=== PATIENT | female | born 1960 | race Caucasian/White ===

== ENCOUNTER 2018-06-11 23:44 | Emergency (ER) | payer MEDICARE, MEDICAID ==
[~2018-06-11] VITALS: Ht 160 cm; Wt 93.0 kg
[~2018-06-11 23:44] MED LIST: CITA-124 PO; CLON2TAB PO; ESTR0.6261 PO; LAMO25TA PO; NICO-687 TD; PRAZ1CAP5 PO
[2018-06-12] MEDS ORDERED: LIDOcaine 1.5% w/epinephrine 1:200,000 5ml ampul IJ ONE
[2018-06-12] MEDS ORDERED: TETanus/Pertussis (Acell)/Diphther VAC/PF (Tdap-Adult) 0.5ml syringe IM ONE
[2018-06-12] MEDS ORDERED: bacitracin 15gm ointment TP ONE (00:05)
[2018-06-12] MEDS ORDERED: LIDOcaine 1% w/EPI 1:100,000 30ml vial (MDV) IJ ONE (00:20)
[2018-06-12] MEDS ORDERED: LIDOcaine 1% (10mg/ml)w/preservative injection 20ml MDV IJ ONE (00:20)
[2018-06-12 00:25] LABS: BASOPHILS % (AUTO) 0.5 % (0-1); EOSINOPHILS # (AUTO) 0.2 X10'3 (0-0.9); EOSINOPHILS % (AUTO) 1.8 % (0-6); HEMOGLOBIN 16.5 g/dl (12.0-16.0); LYMPHOCYTES # (AUTO) 3.4 X10'3 (1.1-4.8); LYMPHOCYTES % (AUTO) 31.4 % (21-51); MEAN CORPUSCULAR HEMOGLOBIN 31.9 PG (27.0-31.0); MEAN CORPUSCULAR HGB CONC 33.8 % (33.0-36.5); MEAN CORPUSCULAR VOLUME 94.4 FL (78-98); MONOCYTES # (AUTO) 0.5 X10'3 (0-0.9); MONOCYTES % (AUTO) 4.4 % (2-12); NEUTROPHILS # (AUTO) 6.8 X10'3 (1.8-7.7); NEUTROPHILS % (AUTO) 61.9 % (42-75); PLATELET COUNT 312 X10'3 (140-440); RED BLOOD COUNT 5.19 X10'6 (4.20-5.60); RED CELL DISTRIBUTION WIDTH 14.8 % (11.5-14.5); WHITE BLOOD COUNT 10.9 X10'3 (4.5-11.0)
[2018-06-12 00:26] LABS: CLARITY,URINE SLIGHTLY CLOUDY (Clear); COLOR,URINE YELLOW (Yellow); GLUCOSE, URINE NEGATIVE (Neg); KETONES,URINE NEGATIVE (Neg); LEUKOCYTE ESTERASE ,URINE NEGATIVE (Neg); NITRITES, URINE NEGATIVE (Neg); OCCULT BLOOD,URINE NEGATIVE (Neg); PROTEIN,URINE NEGATIVE (Neg); UROBILINOGEN,URINE 0.2 E.U/dL (0.2-1.0)
[2018-06-12 00:29] LABS: UA COLLECTION TYPE CLN CATCH MIDSTREAM
[2018-06-12 00:30] LABS: URINE HCG NEGATIVE (NEG)
[2018-06-12 00:33] LABS: BACTERIA,URINE 2+ /HPF (Neg); RBC,URINE NONE SEEN /HPF (0-2); WBC,URINE 0-4 /HPF (0-4)
[2018-06-12 00:34] LABS: SQUAMOUS EPITHELIAL CELL,UR MANY /LPF (FEW)
[2018-06-12 00:37] LABS: URINE AMPHETAMINE SCREEN NEGATIVE (Neg); URINE BARBITUATE SCREEN NEGATIVE (Neg); URINE BENZODIAZEPINES SCREEN POSITIVE (Neg); URINE CANNABINOID SCREEN POSITIVE (Neg); URINE COCAINE SCREEN NEGATIVE (Neg); URINE METHADONE SCREEN NEGATIVE (Neg); URINE OPIATE SCREEN NEGATIVE (Neg); URINE PHENCYCLIDINE SCREEN NEGATIVE (Neg)
[2018-06-12 00:38] LABS: ALANINE AMINOTRANSFERASE 26 U/L (12-78); ALBUMIN 3.8 G/DL (3.4-5.0); ALKALINE PHOSPHATASE 61 IU/L (46-116); ANION GAP 9 (8-16); ASPARTATE AMINO TRANSFERASE 20 U/L (10-37); BILIRUBIN,TOTAL 0.4 MG/DL (0.1-1.0); BLOOD UREA NITROGEN 14 MG/DL (7-18); BUN/CREATININE RATIO 13.7 (6.6-38.0); CALCIUM 9.3 MG/DL (8.5-10.1); CHLORIDE 100 MMOL/L (99-107); CREATININE 1.02 MG/DL (0.40-0.90); GLUCOSE 108 MG/DL (70-104); SODIUM 139 MMOL/L (135-145); TOTAL CARBON DIOXIDE 30.4 MMOL/L (24-32); TOTAL PROTEIN 7.8 G/DL (6.4-8.2); eGFR 55 ML/MIN
[2018-06-12 00:40] LABS: POTASSIUM 4.2 MMOL/L (3.5-5.1)
[2018-06-12 00:47] LABS: ETHANOL < 0.010 GM/DL (0.0-0.010)
[2018-06-12] MEDS ORDERED: ESCI10TA PO (00:55)
[2018-06-12] MEDS ORDERED: CLON2TAB PO (00:55)
[2018-06-12] MEDS ORDERED: LAMO200T31 PO (00:55)
[2018-06-12] MEDS ORDERED: PRAZ2CAP2 PO (00:55)
[2018-06-12] MEDS ORDERED: CITA-311 PO (00:55)
[2018-06-12] MEDS ORDERED: ASEN10TA SL (00:55)
[2018-06-12] MEDS ORDERED: nicotine 21mg patch - 24 hr TD ONE (01:20)
[2018-06-12] MEDS ORDERED: LORazepam 1 MG tablet PO PRN ×2 (01:20→01:50)
[2018-06-12] MEDS ORDERED: gabapentin 400mg capsule PO SCH (08:00)
[2018-06-12] MEDS ORDERED: FLUoxetine 20mg capsule PO SCH (08:00)
[2018-06-12] MEDS ORDERED: lamoTRIgine 100mg tablet PO SCH ×2 (08:00→22:00)
[2018-06-12] MEDS ORDERED: clonazePAM 1mg tablet PO SCH ×2 (08:00→22:00)
[2018-06-12] MEDS: clonazePAM 1mg tablet PO SCH ×2 (08:25→13:44)
[2018-06-12] MEDS ORDERED: CITALOpram 10mg tablet PO SCH (09:00)
[2018-06-12] MEDS ORDERED: estrogen, conjugated 0.625mg tablet PO SCH (09:00)
[2018-06-12] MEDS ORDERED: clonazePAM 1mg tablet PO PRN (13:00)
[2018-06-12 18:06] VITALS: BP 143/84
[2018-06-12] MEDS ORDERED: ASENAPINE MALEATE 10 MG SL SCH (21:00)
[2018-06-12] MEDS ORDERED: prazosin 1mg capsule PO SCH (21:00)
[2018-06-13] MEDS ORDERED: LAMOTRIGINE PO SCH (08:00)
== END 2018-06-13 02:42 ==
LOC: ER 23:45
DX: S51.812A Laceration without foreign body of left forearm, initial encounter (principal); S51.811A Laceration without foreign body of right forearm, initial encounter; R45.851 Suicidal ideations; F31.9 Bipolar disorder, unspecified; F43.10 Post-traumatic stress disorder, unspecified; F12.90 Cannabis use, unspecified, uncomplicated; F13.90 Sedative, hypnotic, or anxiolytic use, unspecified, uncomplicated; F17.210 Nicotine dependence, cigarettes, uncomplicated; J45.909 Unspecified asthma, uncomplicated; G89.29 Other chronic pain; Z98.890 Other specified postprocedural states; Z88.5 Allergy status to narcotic agent; Z88.8 Allergy status to other drugs, medicaments and biological substances; Z79.899 Other long term (current) drug therapy; X77.8XXA Intentional self-harm by other hot objects, initial encounter; Y93.89 Activity, other specified; Y92.89 Other specified places as the place of occurrence of the external cause; Y99.9 Unspecified external cause status
CPT/HCPCS: 36415; 80053; 80305; 80320; 81001; 81025; 84443; 85025; 99285; J3490

== ENCOUNTER 2018-06-13 00:15 | Inpatient (IN) | payer MEDICARE, MEDICAID ==
[~2018-06-13] VITALS: Ht 162.6 cm; Wt 92.0 kg
[~2018-06-13 00:15] MED LIST changes: +ASEN10TA SL; -CITA-124 PO; +CITA-311 PO; +ESCI10TA PO; +LAMO200T31 PO; -LAMO25TA PO; -NICO-687 TD; -PRAZ1CAP5 PO; +PRAZ2CAP2 PO
[2018-06-13 03:18] VITALS: BP 135/87
[2018-06-13] MEDS ORDERED: acetaminophen 325mg tablet PO PRN ×2 (03:55)
[2018-06-13] MEDS ORDERED: mag hydrox/Alum hydrox/simeth 30ml oral suspension PO PRN (03:55)
[2018-06-13] MEDS ORDERED: magnesium hydroxide 30ml (MOM) UD suspension PO PRN (03:55)
[2018-06-13 08:00] VITALS: BP 126/76
[2018-06-13] MEDS ORDERED: CITALOpram 10mg tablet PO SCH (08:00)
[2018-06-13] MEDS: estrogen, conjugated 0.625mg tablet PO SCH (08:18)
[2018-06-13] MEDS: lamoTRIgine 100mg tablet PO SCH (08:19)
[2018-06-13 13:51] LABS: HEMOGLOBIN A1C 5.6 % (4.5-6.2)
[2018-06-13 14:02] LABS: CHOL/HDL RATIO 5.6 (0.00-4.99); CHOLESTEROL 263 MG/DL (0-200); HDL CHOLESTEROL 47 MG/DL (35-60); LDL CHOLESTEROL 185 MG/DL (50-100); TRIGLYCERIDES 198 MG/DL (20-135)
[2018-06-13] MEDS ORDERED: lurasidone 20mg tablet PO SCH (18:00)
[2018-06-13 20:00] VITALS: BP 126/70
[2018-06-13] MEDS: clonazePAM 1mg tablet PO PRN (20:39)
[2018-06-13] MEDS: prazosin 5mg capsule PO SCH (20:39)
[2018-06-13] MEDS ORDERED: ASENAPINE MALEATE 10 MG SL SCH (21:00)
[2018-06-13] MEDS ORDERED: prazosin 1mg capsule PO SCH (21:00)
[2018-06-14] MEDS: diphenhydrAMINE 25mg capsule PO PRN ×2 (01:02→20:27)
[2018-06-14 08:00] VITALS: BP 103/57
[2018-06-14] MEDS: estrogen, conjugated 0.625mg tablet PO SCH (08:26)
[2018-06-14] MEDS: lamoTRIgine 100mg tablet PO SCH (08:26)
[2018-06-14] MEDS: lurasidone 20mg tablet PO SCH (18:02)
[2018-06-14 20:00] VITALS: BP 133/76
[2018-06-14] MEDS: prazosin 5mg capsule PO SCH (20:27)
[2018-06-14] MEDS: clonazePAM 1mg tablet PO PRN (20:30)
[2018-06-15] MEDS: diphenhydrAMINE 25mg capsule PO PRN ×2 (05:24→18:45)
[2018-06-15 08:00] VITALS: BP 123/78
[2018-06-15] MEDS: lamoTRIgine 100mg tablet PO SCH (08:00)
[2018-06-15] MEDS: estrogen, conjugated 0.625mg tablet PO SCH (08:00)
[2018-06-15] MEDS ORDERED: voritoxetine HBr tablet 5 MG TABLET PO ONE (08:45)
[2018-06-15] MEDS: clonazePAM 1mg tablet PO PRN ×2 (13:45→20:27)
[2018-06-15] MEDS: lurasidone 20mg tablet PO SCH (17:42)
[2018-06-15 20:00] VITALS: BP 128/95
[2018-06-15] MEDS: prazosin 5mg capsule PO SCH (20:27)
[2018-06-15] MEDS ORDERED: diphenhydrAMINE 25mg capsule PO ONE (23:55)
[2018-06-16 07:00] VITALS: BP 119/74
[2018-06-16] MEDS ORDERED: voritoxetine HBr tablet 5 MG TABLET PO SCH (08:00)
[2018-06-16] MEDS: estrogen, conjugated 0.625mg tablet PO SCH (08:18)
[2018-06-16] MEDS: lamoTRIgine 100mg tablet PO SCH (08:18)
[2018-06-16] MEDS: clonazePAM 1mg tablet PO PRN (10:05)
[2018-06-16] MEDS: lurasidone 20mg tablet PO SCH (17:51)
[2018-06-16 20:42] VITALS: BP 126/59
[2018-06-16] MEDS: prazosin 5mg capsule PO SCH (21:03)
[2018-06-17] MEDS: diphenhydrAMINE 25mg capsule PO PRN ×3 (05:57→21:15)
[2018-06-17 07:00] VITALS: BP 138/75
[2018-06-17] MEDS: estrogen, conjugated 0.625mg tablet PO SCH (08:49)
[2018-06-17] MEDS: lamoTRIgine 100mg tablet PO SCH (08:49)
[2018-06-17] MEDS: voritoxetine HBr tablet 5 MG TABLET PO SCH (08:49)
[2018-06-17] MEDS: clonazePAM 1mg tablet PO PRN (13:22)
[2018-06-17] MEDS: lurasidone 20mg tablet PO SCH (17:54)
[2018-06-17 20:00] VITALS: BP 134/80
[2018-06-17] MEDS ORDERED: zolpidem 5mg tablet PO PRN (20:35)
[2018-06-17] MEDS: prazosin 5mg capsule PO SCH (21:13)
[2018-06-18 07:00] VITALS: BP 121/74
[2018-06-18] MEDS: voritoxetine HBr tablet 5 MG TABLET PO SCH (07:38)
[2018-06-18] MEDS: lamoTRIgine 100mg tablet PO SCH (07:38)
[2018-06-18] MEDS: estrogen, conjugated 0.625mg tablet PO SCH (07:38)
[2018-06-18] MEDS: lurasidone 20mg tablet PO SCH (17:54)
[2018-06-18 20:24] VITALS: BP 116/69
[2018-06-18] MEDS: prazosin 5mg capsule PO SCH (20:42)
[2018-06-18] MEDS: clonazePAM 1mg tablet PO PRN (20:42)
[2018-06-19 08:00] VITALS: BP 129/81
[2018-06-19] MEDS: voritoxetine HBr tablet 5 MG TABLET PO SCH (08:13)
[2018-06-19] MEDS: estrogen, conjugated 0.625mg tablet PO SCH (08:13)
[2018-06-19] MEDS: lamoTRIgine 100mg tablet PO SCH (08:13)
[2018-06-19] MEDS: lurasidone 20mg tablet PO SCH (18:51)
[2018-06-19 20:00] VITALS: BP 129/71
[2018-06-19] MEDS: clonazePAM 1mg tablet PO PRN (20:54)
[2018-06-19] MEDS: prazosin 5mg capsule PO SCH (20:54)
[2018-06-20] MEDS: diphenhydrAMINE 25mg capsule PO PRN (00:24)
[2018-06-20 07:00] VITALS: BP 131/70
[2018-06-20] MEDS: voritoxetine HBr tablet 5 MG TABLET PO SCH (08:00)
[2018-06-20] MEDS: lamoTRIgine 100mg tablet PO SCH (08:00)
[2018-06-20] MEDS: estrogen, conjugated 0.625mg tablet PO SCH (08:02)
[2018-06-20] MEDS ORDERED: VORT10TA PO (13:55)
[2018-06-20] MEDS ORDERED: LURA60TA2 PO (13:55)
[2018-06-20] MEDS ORDERED: LAMO100T89 PO (13:55)
[2018-06-20] MEDS ORDERED: PRAZ5CAP2 PO (13:55)
[2018-06-20] MEDS ORDERED: CLON1TAB12 PO (13:55)
[2018-06-20] MEDS ORDERED: DIPH-423 PO (13:55)
== END 2018-06-20 14:30 | disposition home or self-care (01) | DRG 885 ==
LOC: ADULT MH 00:15
PROVIDERS: ADMIT Psychiatry & Neurology Psychiatry; ATTEND Psychiatry & Neurology Psychiatry
DX: F33.2 Major depressive disorder, recurrent severe without psychotic features (principal); R45.851 Suicidal ideations; F17.210 Nicotine dependence, cigarettes, uncomplicated; E66.9 Obesity, unspecified; M54.9 Dorsalgia, unspecified; G89.29 Other chronic pain; F43.10 Post-traumatic stress disorder, unspecified; F60.9 Personality disorder, unspecified; Z90.710 Acquired absence of both cervix and uterus; Z88.8 Allergy status to other drugs, medicaments and biological substances; Z83.518 Family history of other specified eye disorder; Z80.0 Family history of malignant neoplasm of digestive organs; Z82.49 Family history of ischemic heart disease and other diseases of the circulatory system; Z68.34 Body mass index [BMI] 34.0-34.9, adult
CPT/HCPCS: 36415; 80061; 83036; 87070; 99285; 99406; Q0163

== ENCOUNTER 2020-02-23 00:57 | Emergency (ER) | payer MEDICARE, MEDICAID ==
[~2020-02-23] VITALS: Ht 172.7 cm; Wt 97.7 kg
[~2020-02-23 00:57] MED LIST changes: -ASEN10TA SL; -CITA-311 PO; +CLON1TAB12 PO; -CLON2TAB PO; +DIPH-423 PO; -ESCI10TA PO; +LAMO100T PO; -LAMO200T31 PO; +LURA60TA2 PO; -PRAZ2CAP2 PO; +PRAZ5CAP2 PO; +VORT10TA PO
[2020-02-23 01:00] VITALS: BP 113/78
[2020-02-23 01:40] LABS: EOSINOPHILS % (AUTO) 0 % (0-6); LYMPHOCYTES # (AUTO) 1.5 X10'3 (1.1-4.8); LYMPHOCYTES % (AUTO) 15.9 % (21-51); MEAN CORPUSCULAR HGB CONC 35.1 g/dL (33.0-36.5); MONOCYTES # (AUTO) 0.1 X10'3 (0-0.9); WHITE BLOOD COUNT 9.4 X10'3 (4.5-11.0)
[2020-02-23 01:42] LABS: BASOPHILS % (AUTO) 0.2 % (0-1); HEMATOCRIT 50.2 % (35.0-45.0); HEMOGLOBIN 17.6 g/dl (12.0-16.0); MONOCYTES % (AUTO) 0.9 % (2-12); NEUTROPHILS # (AUTO) 7.8 X10'3 (1.8-7.7); PLATELET COUNT 227 X10'3 (140-440); RED BLOOD COUNT 5.03 X10'6 (4.20-5.60); RED CELL DISTRIBUTION WIDTH 14.8 % (11.5-14.5)
[2020-02-23 01:45] LABS: ALANINE AMINOTRANSFERASE 30 U/L (12-78); ALBUMIN 3.7 G/DL (3.4-5.0); ALKALINE PHOSPHATASE 47 IU/L (46-116); ANION GAP 13 (8-16); ASPARTATE AMINO TRANSFERASE 15 U/L (10-37); BILIRUBIN,TOTAL 0.4 MG/DL (0.1-1.0); BLOOD UREA NITROGEN 20 MG/DL (7-18); BUN/CREATININE RATIO 23.8 (6.6-38.0); CALCIUM 8.8 MG/DL (8.5-10.1); CHLORIDE 100 MMOL/L (99-107); CREATININE 0.84 MG/DL (0.40-0.90); GLUCOSE 120 MG/DL (70-104); SODIUM 135 MMOL/L (135-145); TOTAL CARBON DIOXIDE 22.4 MMOL/L (24-32); TOTAL PROTEIN 7.5 G/DL (6.4-8.2); eGFR 69 ML/MIN
[2020-02-23 01:49] LABS: URINE HCG NEGATIVE (NEG)
[2020-02-23 01:51] LABS: ACETAMINOPHEN < 2.0 UG/ML (10-30)
[2020-02-23] MEDS ORDERED: TETanus/Pertussis (Acell)/Diphther VAC/PF (Tdap-Adult) 0.5ml syringe IMVAC ONE (01:55)
[2020-02-23 01:58] LABS: URINE AMPHETAMINE SCREEN NEGATIVE (Neg); URINE BARBITUATE SCREEN NEGATIVE (Neg); URINE BENZODIAZEPINES SCREEN POSITIVE (Neg); URINE CANNABINOID SCREEN POSITIVE (Neg); URINE COCAINE SCREEN NEGATIVE (Neg); URINE METHADONE SCREEN NEGATIVE (Neg); URINE OPIATE SCREEN NEGATIVE (Neg); URINE PHENCYCLIDINE SCREEN NEGATIVE (Neg)
--- NOTE | 2020-02-23 02:00 | NUR ---
PATIENT SLEEPING, NO SIGN OF DISTRESS
[2020-02-23] MEDS ORDERED: OMEP40CA13 PO (03:32)
[2020-02-23] MEDS ORDERED: ESCI20TA PO (03:32)
[2020-02-23] MEDS ORDERED: ASEN10TA SL (03:32)
[2020-02-23] MEDS ORDERED: THO10T PO (03:32)
--- NOTE | 2020-02-23 04:32 | NUR ---
PATIENT OUT OF ROOM ASKING TO CALL HER MOTHER IN ORDER TO MAKE SURE THAT SHE CAN TAKE CARE OF HER PETS. DISCUSSED WITH PATIENT THAT IT WOULD BE BETTER TO WEIGHT UNTIL A LATER HOUR TO CALL SINCE HER MOTHER IS STILL ASLEEP RIGHT NOW. PATIENT IS AGREEABLE TO THIS PLAN. RETURNED TO ROOM AND BED.
[2020-02-23] MEDS ORDERED: diphenhydrAMINE 25mg capsule PO ONE (04:45)
--- NOTE | 2020-02-23 05:07 | NUR ---
PACKET FAXED TO [facility]
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
--- NOTE | 2020-02-23 06:19 | NUR ---
bipolar/depression, chronic back pain. Epidural yesterday.
--- NOTE | 2020-02-23 06:40 | NUR ---
Patient's sleeping of left side. No distress observed. Continue to monitor.
[2020-02-23] MEDS ORDERED: acetaminophen 325mg tablet PO ONE (07:00)
--- NOTE | 2020-02-23 08:26 | NUR ---
Patient sitting up and talking to her mom on the phone. No distress observed. Continue to monitor.
== END 2020-02-23 10:05 | disposition home or self-care (01) ==
LOC: ER 00:58
DX: S50.812A Abrasion of left forearm, initial encounter (principal); S50.811A Abrasion of right forearm, initial encounter; R45.851 Suicidal ideations; G89.29 Other chronic pain; F31.9 Bipolar disorder, unspecified; F12.90 Cannabis use, unspecified, uncomplicated; Z72.89 Other problems related to lifestyle; Z98.890 Other specified postprocedural states; Z60.2 Problems related to living alone; Z88.8 Allergy status to other drugs, medicaments and biological substances; Z79.899 Other long term (current) drug therapy; W45.8XXA Other foreign body or object entering through skin, initial encounter; Y93.89 Activity, other specified; Y92.89 Other specified places as the place of occurrence of the external cause; Y99.8 Other external cause status
CPT/HCPCS: 36415; 80053; 80305; 80320; 80329; 81025; 85025; 90471; 90715; 99285; Q0163

== ENCOUNTER 2021-02-15 19:28 | Emergency (ER) | payer MEDICARE, MEDICAID ==
[~2021-02-15] VITALS: Ht 162.6 cm; Wt 84.0 kg
[~2021-02-15 19:28] MED LIST changes: +ASEN10TA SL; -DIPH-423 PO; +ESCI20TA PO; -ESTR0.6261 PO; -LURA60TA2 PO; +OMEP40CA21 PO; -PRAZ5CAP2 PO; +THO10T PO; -VORT10TA PO
[2021-02-15] MEDS ORDERED: TETanus/Pertussis (Acell)/Diphther VAC/PF (Tdap-Adult) 0.5ml syringe IMVAC ONE (20:00)
[2021-02-15] MEDS ORDERED: normal saline 1000ml 1,000 ML IV ONE (20:00)
[2021-02-15] MEDS ORDERED: bacitracin 15gm ointment TP ONE (20:00)
[2021-02-15 20:29] LABS: BASOPHILS # (AUTO) 0.1 X10'3 (0-0.2); BASOPHILS % (AUTO) 0.8 % (0-1); EOSINOPHILS # (AUTO) 0.1 X10'3 (0-0.9); EOSINOPHILS % (AUTO) 1.8 % (0-6); HEMATOCRIT 47.3 % (35.0-45.0); HEMOGLOBIN 16.1 g/dl (12.0-16.0); LYMPHOCYTES # (AUTO) 2.4 X10'3 (1.1-4.8); MEAN CORPUSCULAR HEMOGLOBIN 32.8 PG (27.0-31.0); MEAN CORPUSCULAR VOLUME 96.4 FL (78-98); MEAN PLATELET VOLUME 6.8 FL (7.4-10.4); MONOCYTES # (AUTO) 0.5 X10'3 (0-0.9); MONOCYTES % (AUTO) 6.6 % (2-12); NEUTROPHILS # (AUTO) 3.9 X10'3 (1.8-7.7); NEUTROPHILS % (AUTO) 55.8 % (42-75); PLATELET COUNT 327 X10'3 (140-440); RED CELL DISTRIBUTION WIDTH 16.8 % (11.5-14.5)
[2021-02-15 20:39] LABS: ALANINE AMINOTRANSFERASE 17 U/L (12-78); ALBUMIN 3.3 G/DL (3.4-5.0); ALBUMIN/GLOBULIN RATIO 0.9 (1.1-1.5); ALKALINE PHOSPHATASE 65 IU/L (46-116); ANION GAP 6 (8-16); ASPARTATE AMINO TRANSFERASE 15 U/L (10-37); BILIRUBIN,TOTAL 0.3 MG/DL (0.1-1.0); BLOOD UREA NITROGEN 12 MG/DL (7-18); BUN/CREATININE RATIO 15.6 (6.6-38.0); CALCIUM 8.3 MG/DL (8.5-10.1); CHLORIDE 102 MMOL/L (99-107); CREATININE 0.77 MG/DL (0.40-0.90); GLUCOSE 85 MG/DL (70-104); POTASSIUM 3.7 MMOL/L (3.5-5.1); SODIUM 138 MMOL/L (135-145); TOTAL CARBON DIOXIDE 29.8 MMOL/L (24-32); TOTAL PROTEIN 6.9 G/DL (6.4-8.2); eGFR 76 ML/MIN
[2021-02-15 20:49] LABS: ETHANOL < 0.010 GM/DL (0.0-0.010)
[2021-02-15 20:55] LABS: ACETAMINOPHEN < 2.0 UG/ML (10-30)
--- NOTE | 2021-02-15 23:31 | NUR ---
Call from poison control to follow up on patient condition. EKG ordered by recommedation of poison control and vital signs monitored.
[2021-02-16] MEDS ORDERED: CHLO100T24 PO (00:31)
[2021-02-16] MEDS ORDERED: LAMO200T10 PO (00:31)
[2021-02-16 01:00] LABS: URINE HCG NEGATIVE (NEG)
[2021-02-16 01:01] LABS: CLARITY,URINE CLEAR (Clear); COLOR,URINE YELLOW (Yellow); GLUCOSE, URINE NEGATIVE (Neg); KETONES,URINE NEGATIVE (Neg); LEUKOCYTE ESTERASE ,URINE NEGATIVE (Neg); NITRITES, URINE NEGATIVE (Neg); OCCULT BLOOD,URINE NEGATIVE (Neg); PH,URINE 5.5 (4.8-8.0); PROTEIN,URINE NEGATIVE (Neg); UROBILINOGEN,URINE 0.2 E.U/dL (0.2-1.0)
[2021-02-16 01:02] LABS: UA COLLECTION TYPE CLN CATCH MIDSTREAM
[2021-02-16 01:05] LABS: URINE AMPHETAMINE SCREEN NEGATIVE (Neg); URINE BARBITUATE SCREEN NEGATIVE (Neg); URINE BENZODIAZEPINES SCREEN POSITIVE (Neg); URINE CANNABINOID SCREEN POSITIVE (Neg); URINE COCAINE SCREEN NEGATIVE (Neg); URINE METHADONE SCREEN NEGATIVE (Neg); URINE OPIATE SCREEN NEGATIVE (Neg); URINE PHENCYCLIDINE SCREEN NEGATIVE (Neg)
[2021-02-16] MEDS ORDERED: acetaminophen 325mg tablet PO ONE (01:55)
[2021-02-16 05:56] VITALS: BP 144/80
[2021-02-16] MEDS ORDERED: pantoprazole 40mg Tablet.DR PO SCH (07:30)
--- NOTE | 2021-02-16 07:45 | NUR ---
PT HAS BEEN SLEEPING THIS AM. PT WAKES SHORTLY TO USE BATHROOM AND THEN GOS RIGHT BACK TO BED AND SLEEP.
[2021-02-16] MEDS ORDERED: chlorproMAZINE 25mg tablet PO SCH (08:00)
--- NOTE | 2021-02-16 09:00 | NUR ---
PT CURRENTLY TALKING WITH [facility] LOAN INTERVIEWER NAHUN AT BEDSIDE.
--- NOTE | 2021-02-16 09:28 | NUR ---
PT PLACED ON HOLD PER [facility] PRECISION STRUCTURAL METAL FITTER NAHUN
--- NOTE | 2021-02-16 10:45 | NUR ---
PT RESTING IN BED WITH EYES CLOSED, EFFORTLESS RESPIRATIONS OBSERVED.
--- NOTE | 2021-02-16 12:57 | NUR ---
PT SITTING AT BEDSIDE EATING LUNCH
[2021-02-16] MEDS ORDERED: asenapine 5mg TAB.SUBL SL SCH (21:00)
== END 2021-02-16 14:09 ==
LOC: ER 19:28
DX: S61.512A Laceration without foreign body of left wrist, initial encounter (principal); S61.511A Laceration without foreign body of right wrist, initial encounter; Z20.822 Contact with and (suspected) exposure to COVID-19; R45.851 Suicidal ideations; J45.909 Unspecified asthma, uncomplicated; G89.29 Other chronic pain; F31.9 Bipolar disorder, unspecified; F12.90 Cannabis use, unspecified, uncomplicated; Z60.2 Problems related to living alone; Z72.89 Other problems related to lifestyle; Z88.8 Allergy status to other drugs, medicaments and biological substances; Z79.899 Other long term (current) drug therapy; X58.XXXA Exposure to other specified factors, initial encounter; Y93.89 Activity, other specified; Y92.89 Other specified places as the place of occurrence of the external cause; Y99.8 Other external cause status
CPT/HCPCS: 36415; 80053; 80305; 80320; 80329; 81003; 81025; 84443; 85025; 87635; 90471; 90715; 93005; 96360; 96361; 99285; C9803; J7030; Q0161

== ENCOUNTER 2022-08-20 17:49 | Emergency (ER) | payer MEDICARE, MEDICAID ==
[~2022-08-20] VITALS: Ht 162.6 cm; Wt 78.0 kg
[~2022-08-20 17:49] MED LIST changes: -ASEN10TA SL; +ASEN10TA11 SL; +ATOR10TA PO; +CARI3CAP PO; +CHLO100T36 PO; -CLON1TAB12 PO; +ESCI-8 PO; -ESCI20TA PO; -LAMO100T PO; +LAMO100T2 PO; -THO10T PO
[2022-08-20 17:50] VITALS: BP 159/77
[2022-08-20 18:29] LABS: BASOPHILS # (AUTO) 0.1 X10'3 (0-0.2); BASOPHILS % (AUTO) 0.6 % (0-1); EOSINOPHILS # (AUTO) 0.1 X10'3 (0-0.9); EOSINOPHILS % (AUTO) 1.5 % (0-6); HEMATOCRIT 52.7 % (35.0-45.0); LYMPHOCYTES # (AUTO) 3.3 X10'3 (1.1-4.8); LYMPHOCYTES % (AUTO) 37.2 % (21-51); MEAN CORPUSCULAR HEMOGLOBIN 34.2 PG (27.0-31.0); MEAN CORPUSCULAR HGB CONC 34.9 g/dL (33.0-36.5); MEAN CORPUSCULAR VOLUME 98.1 FL (78-98); MEAN PLATELET VOLUME 6.6 FL (7.4-10.4); MONOCYTES # (AUTO) 0.5 X10'3 (0-0.9); MONOCYTES % (AUTO) 5.5 % (2-12); NEUTROPHILS # (AUTO) 4.8 X10'3 (1.8-7.7); NEUTROPHILS % (AUTO) 55.2 % (42-75); PLATELET COUNT 309 X10'3 (140-440); RED BLOOD COUNT 5.37 X10'6 (4.20-5.60); RED CELL DISTRIBUTION WIDTH 13.5 % (11.5-14.5); WHITE BLOOD COUNT 8.8 X10'3 (4.5-11.0)
[2022-08-20 18:43] LABS: HEMOGLOBIN 18.4 g/dl (12.0-16.0)
[2022-08-20 18:46] LABS: ALANINE AMINOTRANSFERASE 23 U/L (12-78); ALBUMIN/GLOBULIN RATIO 1.1 (1.1-1.5); ALKALINE PHOSPHATASE 76 IU/L (46-116); ANION GAP 7 (8-16); ASPARTATE AMINO TRANSFERASE 20 U/L (10-37); BILIRUBIN,TOTAL 0.3 MG/DL (0.1-1.0); BLOOD UREA NITROGEN 22 MG/DL (7-18); BUN/CREATININE RATIO 25.6 (6.6-38.0); CALCIUM 9.6 MG/DL (8.5-10.1); CHLORIDE 103 MMOL/L (99-107); CREATININE 0.86 MG/DL (0.40-0.90); GLUCOSE 119 MG/DL (70-104); POTASSIUM 4.1 MMOL/L (3.5-5.1); SODIUM 141 MMOL/L (135-145); TOTAL CARBON DIOXIDE 31.4 MMOL/L (24-32); TOTAL PROTEIN 7.8 G/DL (6.4-8.2); eGFR 67 ML/MIN
[2022-08-20] MEDS ORDERED: acetaminophen w/codeine (30MG) #3 tablet PO ONE (19:20)
[2022-08-20] MEDS ORDERED: LITH150C8 PO (19:20)
[2022-08-20] MEDS ORDERED: lithium carbonate 150mg capsule PO ONE (20:20)
[2022-08-20] MEDS ORDERED: lithium carbonate 150mg capsule PO SCH (21:00)
[2022-08-21] MEDS ORDERED: lithium carbonate 150mg capsule PO SCH (08:00)
== END 2022-08-20 20:44 | disposition home or self-care (01) ==
LOC: ER 17:50
DX: F32.A Depression, unspecified (principal); F41.9 Anxiety disorder, unspecified; R11.2 Nausea with vomiting, unspecified; J45.909 Unspecified asthma, uncomplicated; G89.29 Other chronic pain; F12.90 Cannabis use, unspecified, uncomplicated; Z90.710 Acquired absence of both cervix and uterus; Z72.89 Other problems related to lifestyle; Z60.2 Problems related to living alone; Z98.890 Other specified postprocedural states; Z88.8 Allergy status to other drugs, medicaments and biological substances; Z79.899 Other long term (current) drug therapy
CPT/HCPCS: 36415; 80053; 85025; 99283

== ENCOUNTER 2022-09-19 22:00 | Emergency (ER) | payer MEDICARE, MEDICAID ==
[~2022-09-19] VITALS: Ht 162.6 cm; Wt 78.0 kg
[~2022-09-19 22:00] MED LIST changes: +LITH150C8 PO
[2022-09-19] MEDS ORDERED: famotidine/PF 10 mg/ml inj IV ONE (22:25)
[2022-09-19] MEDS ORDERED: diphenhydrAMINE 50 mg/ml inj IV ONE (22:25)
[2022-09-19] MEDS ORDERED: ipratropium/albuterol 3ml nebule NEB ONE (22:25)
[2022-09-19] MEDS ORDERED: methylPREDNISolone sod succ 125mg/2ml vial IV ONE (22:25)
[2022-09-19] MEDS ORDERED: EPIN0.3P3 IM (23:12)
[2022-09-19] MEDS ORDERED: cloNIDine 0.1 mg tablet PO ONE (23:15)
[2022-09-19] MEDS ORDERED: PRED10TA23 PO (23:19)
[2022-09-19] MEDS ORDERED: ALBU6.7H14 INH (23:19)
[2022-09-19 23:58] VITALS: BP 158/87
== END 2022-09-20 00:34 | disposition home or self-care (01) ==
LOC: ER 22:00
DX: T78.40XA Allergy, unspecified, initial encounter (principal); I10 Essential (primary) hypertension; G89.29 Other chronic pain; M54.9 Dorsalgia, unspecified; J45.909 Unspecified asthma, uncomplicated; F31.9 Bipolar disorder, unspecified; F32.A Depression, unspecified; F12.10 Cannabis abuse, uncomplicated; Z88.5 Allergy status to narcotic agent; Z88.8 Allergy status to other drugs, medicaments and biological substances; Z79.899 Other long term (current) drug therapy
CPT/HCPCS: 94640; 96374; 96375; 99284; J1200; J2930; J3490; 94760

== ENCOUNTER 2023-02-26 06:51 | Emergency (ER) | payer MEDICARE, MEDICAID ==
[~2023-02-26] VITALS: Ht 162.6 cm; Wt 80.9 kg
[~2023-02-26 06:51] MED LIST changes: +ALBU6.7H14 INH; +EPIN0.3P3 IM
[2023-02-26 08:54] LABS: BASOPHILS % (AUTO) 0.3 % (0-1); EOSINOPHILS % (AUTO) 0.5 % (0-6); HEMATOCRIT 49.3 % (35.0-45.0); HEMOGLOBIN 16.6 g/dl (12.0-16.0); LYMPHOCYTES # (AUTO) 1.5 X10'3 (1.1-4.8); LYMPHOCYTES % (AUTO) 15.1 % (21-51); MEAN CORPUSCULAR HEMOGLOBIN 32.2 PG (27.0-31.0); MEAN CORPUSCULAR HGB CONC 33.6 g/dL (33.0-36.5); MEAN CORPUSCULAR VOLUME 95.8 FL (78-98); MEAN PLATELET VOLUME 6.6 FL (7.4-10.4); MONOCYTES # (AUTO) 0.2 X10'3 (0-0.9); MONOCYTES % (AUTO) 2.4 % (2-12); NEUTROPHILS # (AUTO) 8.3 X10'3 (1.8-7.7); NEUTROPHILS % (AUTO) 81.7 % (42-75); PLATELET COUNT 275 X10'3 (140-440); RED BLOOD COUNT 5.15 X10'6 (4.20-5.60); RED CELL DISTRIBUTION WIDTH 13.7 % (11.5-14.5); WHITE BLOOD COUNT 10.1 X10'3 (4.5-11.0)
[2023-02-26 09:06] LABS: ALANINE AMINOTRANSFERASE 32 U/L (12-78); ALBUMIN 3.9 G/DL (3.4-5.0); ALKALINE PHOSPHATASE 74 IU/L (46-116); ANION GAP 11 (8-16); ASPARTATE AMINO TRANSFERASE 26 U/L (10-37); BILIRUBIN,TOTAL 0.5 MG/DL (0.1-1.0); BLOOD UREA NITROGEN 16 MG/DL (7-18); BUN/CREATININE RATIO 16.5 (10.0-20.0); CALCIUM 9.8 MG/DL (8.5-10.1); CHLORIDE 102 MMOL/L (99-107); CREATININE 0.97 MG/DL (0.40-0.90); GLUCOSE 124 MG/DL (70-104); POTASSIUM 4.4 MMOL/L (3.5-5.1); SODIUM 142 MMOL/L (135-145); TOTAL CARBON DIOXIDE 28.9 MMOL/L (24-32); TOTAL PROTEIN 7.7 G/DL (6.4-8.2); eGFR 58 ML/MIN
[2023-02-26 09:55] VITALS: BP 151/85; PULSE 84; RESP 22; O2SAT 95
[2023-02-26 10:04] VITALS: TEMP 98.1
== END 2023-02-26 10:07 | disposition home or self-care (01) ==
LOC: ER 06:51
DX: M54.9 Dorsalgia, unspecified (principal); Z20.822 Contact with and (suspected) exposure to COVID-19; J45.909 Unspecified asthma, uncomplicated; F31.9 Bipolar disorder, unspecified; F17.200 Nicotine dependence, unspecified, uncomplicated; F12.90 Cannabis use, unspecified, uncomplicated; Z88.5 Allergy status to narcotic agent; Z88.8 Allergy status to other drugs, medicaments and biological substances; Z79.899 Other long term (current) drug therapy
CPT/HCPCS: 36415; 71045; 80053; 83880; 84484; 85025; 87811; 93005; 99285

== ENCOUNTER 2023-11-12 17:12 | Outpatient (CLI) | payer MEDICARE, MEDICAID | END 2023-11-12 23:59 | disposition home or self-care (01) | LOC: RAD 17:12 | PROVIDERS: ATTEND Nurse Practitioner Family | DX: R06.02 Shortness of breath (principal) | CPT/HCPCS: 71046 ==

== ENCOUNTER 2024-01-19 16:14 | Emergency (ER) | payer MEDICARE, MEDICAID ==
[~2024-01-19] VITALS: Ht 162.6 cm; Wt 86.4 kg
[2024-01-19] MEDS ORDERED: CARI4.5C PO (16:32)
[2024-01-19] MEDS ORDERED: OMEP20TA23 PO (16:32)
[2024-01-19] MEDS ORDERED: LAMO200T10 PO (16:32)
[2024-01-19] MEDS ORDERED: CLON2TAB11 PO (16:32)
[2024-01-19] MEDS ORDERED: ASEN5TAB10 SL (16:32)
[2024-01-19] MEDS ORDERED: GLUC-192 (16:33)
[2024-01-19] MEDS ORDERED: MULT-1085 PO (16:33)
[2024-01-19 16:38] LABS: BASOPHILS % (AUTO) 0.3 % (0-1); EOSINOPHILS % (AUTO) 0 % (0-6); HEMATOCRIT 47.8 % (35.0-45.0); HEMOGLOBIN 16.3 g/dl (12.0-16.0); LYMPHOCYTES # (AUTO) 1.7 X10'3 (1.1-4.8); LYMPHOCYTES % (AUTO) 24.9 % (21-51); MEAN CORPUSCULAR HEMOGLOBIN 30.7 PG (27.0-31.0); MEAN CORPUSCULAR HGB CONC 34.2 g/dL (33.0-36.5); MEAN PLATELET VOLUME 6.5 FL (7.4-10.4); MONOCYTES # (AUTO) 0.6 X10'3 (0-0.9); MONOCYTES % (AUTO) 8.8 % (2-12); NEUTROPHILS # (AUTO) 4.5 X10'3 (1.8-7.7); PLATELET COUNT 284 X10'3 (140-440); RED BLOOD COUNT 5.31 X10'6 (4.20-5.60); RED CELL DISTRIBUTION WIDTH 18.9 % (11.5-14.5); WHITE BLOOD COUNT 6.9 X10'3 (4.5-11.0)
[2024-01-19 17:28] LABS: ALBUMIN 3.8 G/DL (3.4-5.0); ANION GAP 10 (8-16); BLOOD UREA NITROGEN 20 MG/DL (7-18); BUN/CREATININE RATIO 24.7 (10.0-20.0); CALCIUM 9.8 MG/DL (8.5-10.1); CHLORIDE 98 MMOL/L (99-107); CREATININE 0.81 MG/DL (0.40-0.90); GLUCOSE 129 MG/DL (70-104); POTASSIUM 4.3 MMOL/L (3.5-5.1); PRO BRAIN NATRIURETIC PEPTIDE 73 PG/ML (0-125); SODIUM 134 MMOL/L (135-145); TOTAL CARBON DIOXIDE 26.5 MMOL/L (24-32); eCRCL 60 ML/MIN; eGFR 71 ML/MIN
[2024-01-19] MEDS ORDERED: METO-395 PO (22:28)
[2024-01-19] MEDS ORDERED: MECL-231 PO (22:28)
[2024-01-19] MEDS: metoprolol succinate 25mg (24-HOUR) SR. Tablet PO SCH (22:46)
[2024-01-19] MEDS: meclizine 12.5mg tablet PO ONE (22:46)
[2024-01-19 22:56] VITALS: BP 141/88; PULSE 90; RESP 26; TEMP 98.1; O2SAT 94
== END 2024-01-19 22:57 | disposition home or self-care (01) ==
LOC: ER 16:15
DX: I10 Essential (primary) hypertension (principal); R42 Dizziness and giddiness; J45.909 Unspecified asthma, uncomplicated; G89.29 Other chronic pain; M54.9 Dorsalgia, unspecified; F41.9 Anxiety disorder, unspecified; F32.A Depression, unspecified; F12.90 Cannabis use, unspecified, uncomplicated; Z90.710 Acquired absence of both cervix and uterus; Z85.038 Personal history of other malignant neoplasm of large intestine; Z72.89 Other problems related to lifestyle; Z60.2 Problems related to living alone; Z88.8 Allergy status to other drugs, medicaments and biological substances; Z79.899 Other long term (current) drug therapy
CPT/HCPCS: 36415; 71045; 80048; 83880; 84484; 85025; 93005; 99285; J8597